=== PATIENT | female | born 1960 | race Caucasian/White ===

== ENCOUNTER 2022-02-26 10:28 | Outpatient (CLI) | payer MEDICARE | END 2022-02-26 10:29 | disposition home or self-care (01) | LOC: LABBT 10:28 | PROVIDERS: ATTEND Internal Medicine Gastroenterology | DX: Z20.822 Contact with and (suspected) exposure to COVID-19 (principal) | CPT/HCPCS: U0003; U0005 ==

== ENCOUNTER 2022-03-02 06:01 | Day surgery (SDC) | payer MEDICARE ==
[2022-03-01 11:13] VITALS: BMI 35.4
[2022-03-02] MEDS ORDERED: Ondansetron PF 4 MG/2 ML Vial ONE (06:55)
[2022-03-02] MEDS ORDERED: Dexmedetomidine 200 MCG/2 ML VIAL ONE (07:30)
[2022-03-02] MEDS ORDERED: PROPOFOL 200 MG/20 ML VIAL ONE (08:31)
[2022-03-02] MEDS ORDERED: Lidocaine 1% PF 5 ML VIAL ONE (08:31)
== END 2022-03-02 09:59 | disposition home or self-care (01) ==
LOC: SDC 06:01
PROVIDERS: ATTEND Internal Medicine Gastroenterology
PROC: 0D758ZZ Dilation of Esophagus, Via Natural or Artificial Opening Endoscopic (ICD-10-PCS; principal; 2022-03-02)
PROC: 0DBN8ZX Excision of Sigmoid Colon, Via Natural or Artificial Opening Endoscopic, Diagnostic (ICD-10-PCS; 2022-03-02)
PROC: 0DBN8ZX Excision of Sigmoid Colon, Via Natural or Artificial Opening Endoscopic, Diagnostic (ICD-10-PCS; 2022-03-02)
DX: K63.5 Polyp of colon (principal); R13.10 Dysphagia, unspecified; I48.91 Unspecified atrial fibrillation; R11.2 Nausea with vomiting, unspecified; K92.1 Melena; K21.9 Gastro-esophageal reflux disease without esophagitis; E78.00 Pure hypercholesterolemia, unspecified; R63.4 Abnormal weight loss; Z68.35 Body mass index [BMI] 35.0-35.9, adult; Z86.73 Personal history of transient ischemic attack (TIA), and cerebral infarction without residual deficits; Z87.891 Personal history of nicotine dependence; Z79.01 Long term (current) use of anticoagulants; Z79.899 Other long term (current) drug therapy; Z88.5 Allergy status to narcotic agent; Z88.8 Allergy status to other drugs, medicaments and biological substances; Z95.2 Presence of prosthetic heart valve
CPT/HCPCS: 88305; J2405; J2704

== ENCOUNTER 2022-08-18 09:21 | Outpatient (CLI) | payer MEDICARE | END 2022-08-18 09:22 | disposition home or self-care (01) | LOC: RAD 09:21 | PROVIDERS: ATTEND Internal Medicine Critical Care Medicine | DX: R06.00 Dyspnea, unspecified (principal) | CPT/HCPCS: 71046 ==

== ENCOUNTER 2022-11-19 14:10 | Emergency (ER) | payer MEDICARE, MEDICAID ==
[2022-11-19 14:43] LABS: #Basophils 0.1 thou/uL (0.0-0.2); #Eosinphils 0.1 thou/uL (0.0-0.7); #Lymphocytes 2.7 thou/uL (1.20-3.40); #Monocytes 0.4 thou/uL (0.11-0.59); #Neutrophils 4.4 thou/uL (1.40-6.50); %Basophils 0.8 % (0.0-1.0); %Eosinophils 0.9 % (0.0-10.0); %Lymphocytes 35.6 % (21.0-51.0); %Monocytes 5.3 % (0.0-10.0); %Neutrophils 57.3 % (42.0-75.0); Hemoglobin 13.8 g/dL (12.0-16.0); Mean Corpuscular HGB CONC 32.8 g/dL (32.0-36.0); Mean Corpuscular Hemoglobin 27.3 pg (27.0-31.0); Mean Corpuscular Volume 83.2 fl (78.0-98.0); Mean Platelet Volume 7.4 fL (7.4-10.4); Platelet Count 243 10x3/uL (130-400); RBC Distribution Width 13.4 % (11.5-14.5); Red Blood Cell (RBC) Count 5.05 mill/uL (4.20-5.40); White Blood Cell (WBC) Count 7.7 10x3/uL (4.8-10.8)
[2022-11-19] MEDS ORDERED: Acetaminophen 500 MG TAB ONE (15:09)
[2022-11-19 15:51] LABS: Calcium 8.9 mg/dL (7.8-10.44); Chloride 105 mmol/L (98-107); Potassium 4.3 mmol/L (3.5-5.1); Sodium 137 mmol/L (136-145)
[2022-11-19 15:52] LABS: Globulin 3.1 g/dL (2.4-3.5); Glucose 99 mg/dL (80-115); Protein, Total 7.1 g/dL (5.8-8.1)
[2022-11-19 15:53] LABS: Anion Gap 12 mmol/L (10-20); Carbon Dioxide 24 mmol/L (23-31)
[2022-11-19 15:54] LABS: Bilirubin, Total 0.2 mg/dL (0.2-1.2)
[2022-11-19 15:55] LABS: Alkaline Phosphatase 68 U/L (40-110); Calc. Creatinine Clearance 0 mL/min (70-130); Estimated GFR 82
[2022-11-19 15:56] LABS: BUN (Urea Nitrogen) 19 mg/dL (9.8-20.1)
[2022-11-19 15:57] LABS: AST (SGOT) 18 U/L (5-34)
[2022-11-19 15:58] LABS: ALT (SGPT) 13 U/L (8-55); Lipase 47 U/L (8-78)
[2022-11-19] MEDS ORDERED: Ondansetron PF 4 MG/2 ML Vial ONE (16:23)
[2022-11-19 16:57] LABS: Bilirubin Negative (Negative); Blood, Urine Negative (Negative); Clarity Clear (Clear); Glucose, Urine (Dipstick) Normal (Negative); Ketone, Urine Negative (Negative); Leukocyte Negative Leu/uL (Negative); Nitrite Negative (Negative); Protein, Urine (Dipstick) Negative (Neg-Trace); Urobilinogen Normal mg/dL (Less than 2); pH, Urine 7.5 (5.0-9.0)
[2022-11-19 16:58] LABS: Specific Gravity, Urine 1.046 (1.002-1.036)
[2022-11-19] MEDS ORDERED: Sucralfate 1 GM/10 ML UDCUP ONE (17:55)
[2022-11-19 18:59] LABS: SARS-CoV-2 NAA Rapid Test Not Detected (NotDetected)
== END 2022-11-19 18:55 | disposition admitted as inpatient to this hospital (09) ==
LOC: ERS 14:10
DX: R06.00 Dyspnea, unspecified (principal); E78.00 Pure hypercholesterolemia, unspecified; E05.90 Thyrotoxicosis, unspecified without thyrotoxic crisis or storm; Z20.822 Contact with and (suspected) exposure to COVID-19
CPT/HCPCS: 51701; 71045; 74177; 80053; 81003; 83690; 83880; 84484; 85025; 85379; 93005; 96374; 99285; U0002; 36415; J2405

== ENCOUNTER 2023-01-10 09:29 | Emergency (ER) | payer MEDICARE, MEDICAID ==
[2023-01-10] MEDS ORDERED: Ipratropium/Albuterol 3 ML NEB ONE (09:45)
[2023-01-10] MEDS ORDERED: Dexamethasone 10 MG/ML VIAL ONE (09:59)
[2023-01-10 11:13] LABS: #Monocytes 0.4 thou/uL (0.11-0.59); #Neutrophils 3.1 thou/uL (1.40-6.50); %Basophils 0.3 % (0.0-1.0); %Eosinophils 0.6 % (0.0-10.0); %Lymphocytes 37.7 % (21.0-51.0); %Monocytes 6.1 % (0.0-10.0); %Neutrophils 55.2 % (42.0-75.0); Hemoglobin 12.9 g/dL (12.0-16.0); Mean Corpuscular HGB CONC 32.5 g/dL (32.0-36.0); Mean Corpuscular Hemoglobin 26.7 pg (27.0-31.0); Mean Corpuscular Volume 81.9 fl (78.0-98.0); Mean Platelet Volume 7.9 fL (7.4-10.4); Platelet Count 261 10x3/uL (130-400); RBC Distribution Width 13.2 % (11.5-14.5); Red Blood Cell (RBC) Count 4.83 mill/uL (4.20-5.40); White Blood Cell (WBC) Count 5.7 10x3/uL (4.8-10.8)
[2023-01-10 11:21] LABS: ALT (SGPT) 15 U/L (8-55); AST (SGOT) 17 U/L (5-34); Albumin 4.3 g/dL (3.4-4.8); Alkaline Phosphatase 76 U/L (40-110); Anion Gap 15 mmol/L (10-20); BUN (Urea Nitrogen) 10 mg/dL (9.8-20.1); Bilirubin, Total 0.3 mg/dL (0.2-1.2); Calc. Creatinine Clearance 0 mL/min (70-130); Calcium 9.7 mg/dL (7.8-10.44); Carbon Dioxide 25 mmol/L (23-31); Chloride 102 mmol/L (98-107); Estimated GFR 66; Globulin 3.1 g/dL (2.4-3.5); Glucose 96 mg/dL (80-115); Potassium 4.1 mmol/L (3.5-5.1); Protein, Total 7.4 g/dL (5.8-8.1); Sodium 138 mmol/L (136-145)
== END 2023-01-10 11:58 | disposition home or self-care (01) ==
LOC: ERS 09:29
DX: J44.1 Chronic obstructive pulmonary disease with (acute) exacerbation (principal); I25.10 Atherosclerotic heart disease of native coronary artery without angina pectoris; E78.00 Pure hypercholesterolemia, unspecified
CPT/HCPCS: 36415; 71045; 80053; 83605; 83880; 85025; 87040; 93005; J1100; J7620

== ENCOUNTER 2023-01-18 15:19 | Outpatient (CLI) | payer MEDICARE, MEDICAID | END 2023-01-18 15:20 | disposition home or self-care (01) | LOC: RAD 15:19 | PROVIDERS: ATTEND Internal Medicine Critical Care Medicine | DX: R06.00 Dyspnea, unspecified (principal); J98.4 Other disorders of lung | CPT/HCPCS: 71046 ==

== ENCOUNTER 2023-03-16 08:21 | Outpatient (CLI) | payer MEDICARE, MEDICAID ==
[2023-03-16] MEDS ORDERED: Iopamidol 370 76% 100 ML VIAL ONE (11:13)
== END 2023-03-16 08:22 | disposition home or self-care (01) ==
LOC: CT 08:21
PROVIDERS: ATTEND Family Medicine
DX: R10.13 Epigastric pain (principal); R06.02 Shortness of breath; R16.1 Splenomegaly, not elsewhere classified; K57.50 Diverticulosis of both small and large intestine without perforation or abscess without bleeding
CPT/HCPCS: 74170; 82565; Q9967